=== PATIENT | male | born 1990 | race Caucasian/White ===

== ENCOUNTER 2019-01-04 10:25 | Emergency (ER) | payer OTHER ==
[2019-01-04 10:44] VITALS: BP 143/87
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
[2019-01-04] MEDS ORDERED: Acetaminophen TAB* 325 MG PO ONE (11:07)
== END 2019-01-04 11:36 | disposition home health service (06) ==
LOC: UCEAST 10:25
DX: S20.419A Abrasion of unspecified back wall of thorax, initial encounter (principal); S40.219A Abrasion of unspecified shoulder, initial encounter; S40.812A Abrasion of left upper arm, initial encounter; S40.811A Abrasion of right upper arm, initial encounter; S80.812A Abrasion, left lower leg, initial encounter; S80.811A Abrasion, right lower leg, initial encounter; V28.4XXA Motorcycle driver injured in noncollision transport accident in traffic accident, initial encounter; Y92.410 Unspecified street and highway as the place of occurrence of the external cause; L03.116 Cellulitis of left lower limb; R50.9 Fever, unspecified; F17.210 Nicotine dependence, cigarettes, uncomplicated
CPT/HCPCS: 99203; A9270-GY; G0463

== ENCOUNTER 2019-01-04 12:06 | Inpatient (IN) | payer OTHER ==
[2019-01-04] MEDS ORDERED: metroNIDAZOLE IV 500 MG/100ML* 500 MG/100 ML BAG IVPB ONE (12:12)
[2019-01-04] MEDS ORDERED: Cefepime(*) 2 GM in NS 0.9% 50 ML* 50 ML IVPB ONE (12:12)
[2019-01-04] MEDS ORDERED: NS 0.9% 1000 ML** 1,000 ML IV.FLUID IV ONE (12:12)
[2019-01-04] MEDS ORDERED: Tetan/Diph/Pertus SYR(Tdap)* 0.5 ML SYR(BOOSTRIX) use SYR IM ONE (12:23)
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
[2019-01-04] MEDS ORDERED: Vancomycin(*) 1,250 MG IV x ONCE IVPB ONE ×2 (13:00)
[2019-01-04 13:39] LABS: ABS Basophils 0.1 10^3/ul (0-0.2); ABS Lymphocytes 1.3 10^3/ul (1.0-4.8); ABS Monocytes 1.5 10^3/ul (0-0.8); ABS Neutrophils 12.3 10^3/ul (1.5-7.7); Eosinophil % 0.1 %; Hematocrit 46 % (42-52); Hemoglobin 15.7 g/dL (14.0-18.0); Lymphocyte % 8.8 %; Mean Corpuscular HGB Conc 34 g/dL (31-36); Mean Corpuscular Hemoglobin 32 pg (27-31); Mean Corpuscular Volume 93 fL (80-94); Mean Platelet Volume 6.9 fL (7.4-10.4); Platelet Count 214 10^3/uL (150-450); Red Cell Distribution Width 13 % (10-15); White Blood Count 15.2 10^3/uL (3.5-10.8)
[2019-01-04 13:57] LABS: Albumin 4.4 g/dL (3.2-5.2); Albumin/Globulin Ratio 1.6 (1-3); BUN/Creatinine Ratio 14.6 (8-20); C Reactive Protein 87.85 mg/L (<8.01); Calcium 9.7 mg/dL (8.6-10.3); EGFR African American 105.6 (>60); EGFR Non-African American 87.3 (>60); Globulin 2.8 g/dL (2-4); Potassium 4.3 mmol/L (3.5-5.0); Total Protein 7.2 g/dL (6.4-8.9)
[2019-01-04] MEDS ORDERED: Cefepime* 2 GM in Dextrose 50mL Q24H (Duplex) IV ONE (14:00)
[2019-01-04 14:05] LABS: Urine Appearance Clear; Urine Bilirubin Negative (Negative); Urine Blood Negative (Negative); Urine Color Yellow; Urine Glucose Negative (Negative); Urine Ketones Trace (Negative); Urine Nitrite Negative (Negative); Urine Protein Negative (Negative); Urine Specific Gravity 1.009 (1.010-1.030); Urine Urobilinogen Negative (Negative)
[2019-01-04] MEDS ORDERED: Iohexol 300* (CONTRAST) 10 ML SDV IV ONE ×2 (14:10→14:14)
[2019-01-04 14:25] LABS: Activated Partial Thrombo Time 31.8 seconds (26.0-38.0); INR 0.99 (0.82-1.09)
[2019-01-04] MEDS: Nicotine* 4MG (FRUIT FLAVOR) GUM PO PRN ×3 (14:57→20:40)
[2019-01-04 16:14] LABS: Erythrocyte Sed Rate 2 mm/Hr (0-14)
[2019-01-04] MEDS ORDERED: LORazepam INJ* 2 MG/ML 1 ML VIAL IV PUSH PRN (18:08)
[2019-01-04] MEDS ORDERED: Lorazepam PYXIS KEY PRN (18:08)
[2019-01-04] MEDS ORDERED: ceFAZolin 2 GM PREMIX in ORs 2 GM/50 ML BAG IVPB SCH (19:00)
[2019-01-04] MEDS ORDERED: Vancomycin(*) 0 MG in NS 0.9% 250 ML* 250 ML IVPB SCH (19:00)
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
[2019-01-04] MEDS ORDERED: Acetaminophen TAB* 325 MG PO PRN (19:36)
[2019-01-04] MEDS: ceFAZolin* 2 GM in NS 100 MLS Q8H (Pharmacy Admix) IVPB SCH (19:36)
[2019-01-04] MEDS: Enoxaparin(*) 40 MG/0.4 ML SYR SUBCUT SCH (19:36)
--- NOTE | 2019-01-04 19:38 | PN ---
Hospitalist Progress Note Date of Service: 01/04/19 Patient with reported pain; chart reviewed. No history of seizures. Has history of alcohol use, not currently scoring on WAM, VSS. Start prn tramadol and APAP for pain from road rash abrasions.
[2019-01-04] MEDS: traMADol TAB* 50 MG PO PRN (20:25)
[2019-01-04] MEDS: metroNIDAZOLE IV 500 MG/100ML* 500 MG/100 ML BAG IVPB SCH (21:33)
[2019-01-05] MEDS: ceFAZolin* 2 GM in NS 100 MLS Q8H (Pharmacy Admix) IVPB SCH ×3 (03:33→19:50)
[2019-01-05 05:25] LABS: Urine Benzodiazepine Screen None Detected (None Detect); Urine Opiates Screen None Detected (None Detect)
[2019-01-05] MEDS: metroNIDAZOLE IV 500 MG/100ML* 500 MG/100 ML BAG IVPB SCH ×3 (05:36→20:58)
[2019-01-05 06:16] LABS: ABS Eosinophils 0.1 10^3/ul (0-0.6); ABS Lymphocytes 1.1 10^3/ul (1.0-4.8); ABS Monocytes 1.1 10^3/ul (0-0.8); Eosinophil % 0.6 %; Hematocrit 44 % (42-52); Hemoglobin 14.8 g/dL (14.0-18.0); Lymphocyte % 10.5 %; Mean Corpuscular HGB Conc 34 g/dL (31-36); Mean Corpuscular Hemoglobin 32 pg (27-31); Mean Corpuscular Volume 95 fL (80-94); Mean Platelet Volume 6.9 fL (7.4-10.4); Platelet Count 178 10^3/uL (150-450); Red Blood Count 4.58 10^6 /uL (4.18-5.48); Red Cell Distribution Width 13 % (10-15); White Blood Count 10.2 10^3/uL (3.5-10.8)
[2019-01-05] MEDS: Nicotine* 4MG (FRUIT FLAVOR) GUM PO PRN ×7 (06:26→22:29)
[2019-01-05 06:47] LABS: BUN/Creatinine Ratio 12.7 (8-20); Calcium 8.7 mg/dL (8.6-10.3); EGFR African American 143.5 (>60); EGFR Non-African American 118.6 (>60)
[2019-01-05] MEDS ORDERED: cefTRIAXone(*) 1 GM in NS 0.9% 50 ML* 50 ML IVPB SCH (08:00)
[2019-01-05] MEDS: traMADol TAB* 50 MG PO PRN (17:34)
[2019-01-05] MEDS: Enoxaparin(*) 40 MG/0.4 ML SYR SUBCUT SCH (19:49)
[2019-01-06] MEDS: ceFAZolin* 2 GM in NS 100 MLS Q8H (Pharmacy Admix) IVPB SCH ×3 (04:50→19:58)
[2019-01-06] MEDS: metroNIDAZOLE IV 500 MG/100ML* 500 MG/100 ML BAG IVPB SCH ×3 (05:46→20:50)
[2019-01-06] MEDS: Nicotine* 4MG (FRUIT FLAVOR) GUM PO PRN ×7 (06:07→22:18)
[2019-01-06 06:30] LABS: ABS Eosinophils 0.1 10^3/ul (0-0.6); ABS Lymphocytes 1.4 10^3/ul (1.0-4.8); ABS Monocytes 0.9 10^3/ul (0-0.8); ABS Neutrophils 5.6 10^3/ul (1.5-7.7); Eosinophil % 1.5 %; Hematocrit 43 % (42-52); Lymphocyte % 17.3 %; Mean Corpuscular HGB Conc 35 g/dL (31-36); Mean Corpuscular Hemoglobin 33 pg (27-31); Mean Corpuscular Volume 95 fL (80-94); Mean Platelet Volume 7.3 fL (7.4-10.4); Platelet Count 177 10^3/uL (150-450); Red Blood Count 4.54 10^6 /uL (4.18-5.48); Red Cell Distribution Width 13 % (10-15); White Blood Count 8.1 10^3/uL (3.5-10.8)
[2019-01-06 06:47] LABS: BUN/Creatinine Ratio 11.7 (8-20); C Reactive Protein 84.77 mg/L (<8.01); Calcium 8.9 mg/dL (8.6-10.3); EGFR African American 147.8 (>60); EGFR Non-African American 122.1 (>60); Potassium 4.3 mmol/L (3.5-5.0)
[2019-01-06] MEDS: traMADol TAB* 50 MG PO PRN ×2 (09:32→19:57)
--- NOTE | 2019-01-06 10:36 | PN ---
Subjective - Subjective Reason for Note: Progress Note History: He has good pain control - however it hurts when he walks/showers. He has had no fevers/sweats. Active Problems: Active Problems Abrasion of anterior left lower leg (Acute) S80.812A Abrasion, right lower leg, sequela (Acute) S80.811S Cellulitis due to Staphylococcus (Acute) L03.90, B95.8 History of alcoholism (Chronic) F10.21 History of depression (Chronic) Z86.59 Tobacco user (Chronic) Z72.0 Current Medications: Current Medications Acetaminophen (Tylenol Tab*) 650 mg PO Q4H PRN PRN Reason: FEVER/PAIN Enoxaparin Sodium (Lovenox(*)) 40 mg SUBCUT Q24H [facility] Last Admin: 01/05/19 19:49 Dose: 40 mg Cefazolin Sodium 2 gm/ Sodium (Chloride) 100 mls @ 200 mls/hr IVPB Q8H [facility] Last Admin: 01/06/19 04:50 Dose: 200 mls/hr Metronidazole/Sodium Chloride (Flagyl 500 Mg Ivpb*) 500 mg in 100 mls @ 100 mls /hr IVPB 0530,1330,2130 [facility] Last Admin: 01/06/19 05:46 Dose: 100 mls/hr Lorazepam (Ativan Inj*) 0 mg IV PUSH Q4H PRN; Protocol PRN Reason: AGITATION Last Admin: 01/04/19 21:32 Dose: 1 mg Miscellaneous (Ativan Pyxis Becker) 1 ea N/A .ATIVAN IV BECKER PRN PRN Reason: PYXIS BECKER Nicotine Polacrilex (Nicotine Gum*) 4 mg PO Q2H PRN PRN Reason: CRAVING Last Admin: 01/06/19 09:32 Dose: 4 mg Tramadol HCl (Ultram*) 50 mg PO Q6H PRN PRN Reason: PAIN - BREAKTHROUGH Last Admin: 01/06/19 09:32 Dose: 50 mg - Review of Systems Dermatology: Skin Lesions: Yes Pulmonary: Negative: Cough, Sputum, Hemoptysis, Respiratory Distress Cardiology: Negative: Chest Pain, Palpitations, Swelling of Ankles Gastroenterology: Negative: Abdominal Pain, Nausea, Vomiting, Anorexia, Constipation, Diarrhea Genital - Urinary: Negative: Dysuria Neurology: Negative: Headache Home Medications: Home Medications Medication Instructions Recorded Confirmed Type NK [No Home Medications Reported] 01/04/19 01/04/19 History Allergies: Allergies Allergy/AdvReac Type Severity Reaction Status Date / Time No Known Allergies Allergy Verified 01/04/19 12:12 Objective - Vital Signs Vital Signs: Vital Signs 01/05/19 01/05/19 01/05/19 15:30 17:34 20:00 Temperature 99.1 F Pulse Rate 98 Respiratory 22 18 18 Rate Blood Pressure 121/67 (mmHg) O2 Sat by Pulse 99 96 Oximetry 01/05/19 01/05/19 01/05/19 20:45 20:50 23:31 Temperature 98.9 F 98.7 F Pulse Rate 96 90 Respiratory 22 18 18 Rate Blood Pressure 129/65 120/66 (mmHg) O2 Sat by Pulse 96 96 Oximetry 01/06/19 01/06/19 01/06/19 04:08 07:57 09:32 Temperature 98.1 F 98.2 F Pulse Rate 59 77 Respiratory 16 20 18 Rate Blood Pressure 107/64 109/65 (mmHg) O2 Sat by Pulse 97 97 Oximetry - Intake and Output Intake and Output: Intake & Output 01/03/19 01/04/19 01/05/19 01/06/19 11:59 11:59 11:59 11:59 Intake Total 4150 1920 Output Total 1950 1300 Balance 2200 620 Weight 177 lb 8 oz Intake: IV Fluids 2870 NS (0.9%) 60 IVPB 200 ABX - CEFAZOLIN 100 ABX - FLAGYL 100 Oral 1080 1920 Output: Urine 1950 1300 Other: Estimated Void Medium Date of Last Bowel unknown Movement # Bowel Movements 0 0 Estimated Stool Amount Medium # Voids 4 ADLs: Meal Record Start: 01/04/19 18: 01 Freq: DAILY@0900,1400,1800 Status: Active Protocol: Created 01/04/19 18:01 System (Rec: 01/04/19 18:01 System MED-C13) Document 01/05/19 09:00 [email or web address] (Rec: 01/05/19 09:10 [email or web address] MED-C15) Document 01/05/19 13:08 [email or web address] (Rec: 01/05/19 13:08 [email or web address] MED-C15) Document 01/05/19 18:00 [email or web address] (Rec: 01/05/19 18:52 [id number] MED-C09) Document 01/06/19 09:00 [id number] (Rec: 01/06/19 09:55 [id number] MED-C02) Intake and Output Start: 01/04/19 12: 11 Freq: Status: Active Protocol: Created 01/04/19 12:11 System (Rec: 01/04/19 12:11 System [id number]) Intake and Output Start: 01/04/19 18: 01 Freq: DAILY@0600,1400,2200 Status: Active Protocol: Created 01/04/19 18:01 System (Rec: 01/04/19 18:01 System MED-C13) Document 01/04/19 21:30 [id number] (Rec: 01/04/19 21:33 [id number] MED-C11) Document 01/05/19 04:24 [id number] (Rec: 01/05/19 04:24 [id number] MED-C04) Document 01/05/19 06:00 [id number] (Rec: 01/05/19 06:55 [id number] MED-C11) Document 01/05/19 14:00 [id number] (Rec: 01/05/19 16:13 [id number] MED-C15) Document 01/05/19 23:00 [id number] (Rec: 01/05/19 23:50 [id number] MED-M21) Document 01/06/19 06:00 [id number] (Rec: 01/06/19 06:15 [id number] MED-C09) - Physical Exam General Physical Exam Comment: see "Other Results/Reports" for clinical photo. Cellulitis is no longer visible in the marked areas. There is slow healing of the abraded areas. Lungs and Chest: Yes: Chest Expansion Full, Chest Expansion Symetrica, Percussion Note Resonant, Vessicular Breath Sounds. No: Crackles, Wheezes Heart Rate and Rhythm: Regular Additional Cardiovascular: Yes: Normal Heart Sounds. No: Heart Murmur, Pedal Edema Abdominal Exam: Yes: Soft. No: Distention, Abdominal Mass, Abdominal Tenderness Results - Results Lab Results: Laboratory Results - last 24 hr 01/06/19 01/06/19 05:59 05:59 WBC 8.1 RBC 4.54 Hgb 15.0 Hct 43 MCV 95 H MCH 33 H MCHC 35 RDW 13 Plt Count 177 MPV 7.3 L Neut % (Auto) 69.5 Lymph % (Auto) 17.3 [place] % (Auto) 11.2 Eos % (Auto) 1.5 Baso % (Auto) 0.5 Absolute Neuts (auto) 5.6 Absolute Lymphs (auto) 1.4 Absolute Monos (auto) 0.9 H Absolute Eos (auto) 0.1 Absolute Basos (auto) 0.0 Absolute Nucleated RBC 0.0 Nucleated RBC % 0.0 Sodium 139 Potassium 4.3 Chloride 105 Carbon Dioxide 27 Anion Gap 7 BUN 9 Creatinine 0.77 Est GFR ( Amer) 147.8 Est GFR (Non-Af Amer) 122.1 BUN/Creatinine Ratio 11.7 Glucose 105 H Calcium 8.9 C-Reactive Protein 84.77 H Other Results/Reports: Assessment - Problem List Assessment: Patient Problems Abrasion of anterior left lower leg (Acute) Abrasion, right lower leg, sequela (Acute) Cellulitis due to Staphylococcus (Acute) History of alcoholism (Chronic) History of depression (Chronic) Tobacco user (Chronic) Plan: Abrasion of anterior left lower leg (Acute)Abrasion, right lower leg, sequela ( Acute)Cellulitis due to Staphylococcus (Acute) This is all healing well. I spoke with microbiology - the Staphylococcus aureus was identified biochemically (PCR), but nothing is growing in culture. Dr. Angeles Riley will determine empiric oral therapy tomorrow Tobacco user (Chronic) I counseled him to stop - indicating that he should be independent of tobacco on January 10. History of alcoholism (Chronic) not discussed today History of depression (Chronic) He is feeling miserable being in the hospital. I discussed the above with the patient.
[2019-01-06] MEDS: Enoxaparin(*) 40 MG/0.4 ML SYR SUBCUT SCH (20:05)
[2019-01-07] MEDS: ceFAZolin* 2 GM in NS 100 MLS Q8H (Pharmacy Admix) IVPB SCH (03:42)
[2019-01-07] MEDS: metroNIDAZOLE IV 500 MG/100ML* 500 MG/100 ML BAG IVPB SCH (05:21)
[2019-01-07] MEDS: Nicotine* 4MG (FRUIT FLAVOR) GUM PO PRN ×3 (06:50→11:13)
[2019-01-07 07:03] LABS: ABS Eosinophils 0.2 10^3/ul (0-0.6); ABS Lymphocytes 1.3 10^3/ul (1.0-4.8); ABS Monocytes 0.6 10^3/ul (0-0.8); ABS Neutrophils 4.1 10^3/ul (1.5-7.7); Eosinophil % 2.7 %; Hematocrit 44 % (42-52); Hemoglobin 15.6 g/dL (14.0-18.0); Lymphocyte % 20.8 %; Mean Corpuscular HGB Conc 35 g/dL (31-36); Mean Corpuscular Hemoglobin 33 pg (27-31); Mean Corpuscular Volume 94 fL (80-94); Mean Platelet Volume 7.1 fL (7.4-10.4); Platelet Count 207 10^3/uL (150-450); Red Blood Count 4.68 10^6 /uL (4.18-5.48); Red Cell Distribution Width 13 % (10-15); White Blood Count 6.3 10^3/uL (3.5-10.8)
[2019-01-07 07:16] LABS: BUN/Creatinine Ratio 13.9 (8-20); C Reactive Protein 42.98 mg/L (<8.01); Calcium 9.3 mg/dL (8.6-10.3); EGFR African American 159.7 (>60); Potassium 4.1 mmol/L (3.5-5.0)
[2019-01-07 09:19] VITALS: BP 120/62
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
== END 2019-01-07 13:25 | disposition home or self-care (01) | DRG 720 ==
LOC: ED 12:06 → MED 17:19
PROVIDERS: ADMIT Internal Medicine; ATTEND Internal Medicine Geriatric Medicine
DX: A41.9 Sepsis, unspecified organism (principal); L03.116 Cellulitis of left lower limb; L03.115 Cellulitis of right lower limb; S80.812A Abrasion, left lower leg, initial encounter; S90.811A Abrasion, right foot, initial encounter; B95.61 Methicillin susceptible Staphylococcus aureus infection as the cause of diseases classified elsewhere; F10.10 Alcohol abuse, uncomplicated; F17.290 Nicotine dependence, other tobacco product, uncomplicated; F32.9 Major depressive disorder, single episode, unspecified; V89.0XXA Person injured in unspecified motor-vehicle accident, nontraffic, initial encounter; Z81.1 Family history of alcohol abuse and dependence; Z83.79 Family history of other diseases of the digestive system; Y92.414 Local residential or business street as the place of occurrence of the external cause
CPT/HCPCS: 36415; 70450; 71045; 71260; 72125; 74177; 80048; 80053; 80307; 81003; 82550; 83036; 83605; 84484; 85025; 85610; 85652; 85730; 86140; 87040; 87070; 87077; 87205; 87640; 87641; 90715; 99285; A9270-GY; J0690; J0692; J0696; J1650; J2060; J3370; J3490; Q9967

== ENCOUNTER 2022-02-22 23:52 | Inpatient (IN) ==
[2022-02-23] MEDS: Nicotine GUM 4MG FRUIT FLAVOR PO PRN ×6 (01:32→17:23)
[2022-02-23 01:59] LABS: ABS Eosinophils 0.1 10^3/ul (0-0.6); ABS Lymphocytes 2.7 10^3/ul (1.0-4.8); ABS Monocytes 0.6 10^3/ul (0-0.8); ABS Neutrophils 3.5 10^3/ul (1.5-7.7); Eosinophil % 1.6 %; Hematocrit 48 % (42-52); Hemoglobin 16.4 g/dL (14.0-18.0); Lymphocyte % 38.6 %; Mean Corpuscular HGB Conc 34 g/dL (31-36); Mean Corpuscular Hemoglobin 33 pg (27-31); Mean Corpuscular Volume 95 fL (80-94); Nucleated Red Blood Cells % 0.1; Platelet Count 240 10^3/uL (150-450); Red Blood Count 5.05 10^6 /uL (4.18-5.48); Red Cell Distribution Width 13 % (10-15); White Blood Count 6.9 10^3/uL (3.5-10.8)
[2022-02-23] MEDS ORDERED: Nicotine GUM 4MG FRUIT FLAVOR PO ONE (02:10)
[2022-02-23 02:19] LABS: Urine Appearance Clear; Urine Bilirubin Negative (Negative); Urine Blood Negative (Negative); Urine Color Yellow; Urine Glucose Negative (Negative); Urine Ketones Negative (Negative); Urine Nitrite Negative (Negative); Urine Protein Negative (Negative); Urine Specific Gravity <=1.005 (1.005-1.030); Urine Urobilinogen 0.2 (Negative) (Negative); Urine pH 5.5 (5.0-9.0)
[2022-02-23 02:20] LABS: Urine Benzodiazepine Screen None Detected (None Detect); Urine Cannabinoids Screen None Detected (None Detect); Urine Opiates Screen None Detected (None Detect)
[2022-02-23 02:26] LABS: ALT 44 U/L (7-52); AST 35 U/L (13-39); Acetaminophen < 15 mcg/mL; Albumin 4.6 g/dL (3.2-5.2); Albumin/Globulin Ratio 1.6 (1-3); Alcohol, S 332 mg/dL (<13); Alkaline Phosphatase 115 U/L (35-149); Anion Gap 9 mmol/L (2-11); Blood Urea Nitrogen 7 mg/dL (6-24); CO2 Carbon Dioxide 24 mmol/L (22-32); Calcium 8.8 mg/dL (8.6-10.3); Chloride 106 mmol/L (101-111); Globulin 2.9 g/dL (2-4); Glucose 107 mg/dL (70-100); Potassium 4.2 mmol/L (3.5-5.0); Salicylate < 2.50 mg/dL (<30); Sodium 139 mmol/L (135-145); Total Protein 7.5 g/dL (6.4-8.9); eGFR CKD-EPI 121.1 (>60)
[2022-02-23 02:33] LABS: Urine Bacteria Absent (Absent); Urine Red Blood Cell Trace(0-2/hpf) (Absent); Urine Squamous Epithelial Cell Present (Absent); Urine White Blood Cell Trace(0-5/hpf) (Absent)
[2022-02-23 02:41] LABS: TSH Ultra Thyroid Stim Horm 2.84 mcIU/mL (0.34-5.60)
[2022-02-23] MEDS ORDERED: Al Hydrox/Mg Hydrox/Simet LIQ 30 ML UDC PO PRN (10:45)
[2022-02-24] MEDS: Nicotine GUM 4MG FRUIT FLAVOR PO PRN ×6 (08:26→19:44)
[2022-02-24] MEDS: Vitamin THERAPEUTIC TAB PO SCH (08:42)
[2022-02-24 08:58] LABS: HDL Cholesterol 57.3 mg/dL
[2022-02-25] MEDS: Nicotine GUM 4MG FRUIT FLAVOR PO PRN ×7 (07:39→21:48)
[2022-02-25] MEDS: Vitamin THERAPEUTIC TAB PO SCH (07:39)
[2022-02-26] MEDS: Nicotine GUM 4MG FRUIT FLAVOR PO PRN ×5 (07:31→20:28)
[2022-02-26] MEDS: Vitamin THERAPEUTIC TAB PO SCH (08:39)
[2022-02-27] MEDS: Vitamin THERAPEUTIC TAB PO SCH (08:01)
[2022-02-27] MEDS: Nicotine GUM 4MG FRUIT FLAVOR PO PRN ×6 (08:01→19:38)
[2022-02-28] MEDS: Nicotine GUM 4MG FRUIT FLAVOR PO PRN ×2 (08:27→11:11)
[2022-02-28] MEDS: Vitamin THERAPEUTIC TAB PO SCH (08:27)
[2022-02-28 08:28] VITALS: BP 121/76
== END 2022-02-28 12:14 | disposition home or self-care (01) | DRG 751 ==
LOC: ED 23:52 → EDHOLD 02-23 10:45 → BSU 02-23 12:46
PROVIDERS: ADMIT Psychiatry & Neurology Psychiatry; ATTEND Psychiatry & Neurology Psychiatry